=== PATIENT | female | born 1940 | race Two or more races ===

== ENCOUNTER 2018-07-19 10:13 | Outpatient (CLI) | payer OTHER ==
[~2018-07-19 10:13] MED LIST: AMOX1TAB12 PO; ATORVASTATIN CA10 MG; BENICAR HCT 41 UDTAB; DOLOGEN CAPLET1 EACH PO; DOLOGEN CAPLET1 TAB PO; DONEPEZIL HCL5 MG; GABAPENTIN400 MG; HYZAAR 100-251 EACH; MEDROL4 MG PO; MONTELUKAST SOD10 MG; PNEU16DI2; SYNTHROID175 MCG; TESSALON PERLE100 M1 PO; TESSALON PERLE100 MG PO; TUSSI PRES-B L120 M1 PO; ULTRACET PO; ZITHROMAX TRI-500 MG PO
== END 2018-07-19 10:26 | disposition home or self-care (01) ==
LOC: SONOGRAMA 10:13
DX: E04.1 Nontoxic single thyroid nodule (principal)

== ENCOUNTER → 2020-11-26 | Outpatient (CLI) | payer OTHER | END | disposition home or self-care (01) | LOC: SONOGRAMA 09:27 | PROVIDERS: ATTEND Pathology Anatomic Pathology & Clinical Pathology | DX: D34 Benign neoplasm of thyroid gland (principal); E04.2 Nontoxic multinodular goiter; E04.8 Other specified nontoxic goiter ==

== ENCOUNTER → 2025-01-29 | Emergency (ER) | payer OTHER ==
[~2025-01-29] VITALS: Ht 121.9 cm; Wt 59.0 kg
[~2025-01-29] MED LIST changes: +MICARDIS HCT 81 EACH PO
[2025-01-29 12:32] LABS: BASO % 0.4 % (0.1-1.2); EOS # 0.23 (0.04-0.54); EOS % 4.1 % (0.7-7.0); LYMPH # 1.63 (1.18-3.74); LYMPH % 29.3 % (19.3-53.1); MEAN PLATELET VOLUME 10.40 fl (9.4-12.4); MONO # 0.59 (0.24-0.82); MONO % 10.6 % (4.7-12.5); NEUT # 3.09 (1.56-6.13); NEUT % 55.4 % (34.0-71.1); RED CELL DISTRIBUTION WIDTH 12.7 % (11.6-14.4)
[2025-01-29 13:06] LABS: ALT/SGPT 19.0 U/L (12-78); AST/SGOT 21.0 U/L (15-37); BILIRUBIN TOTAL 1.34 mg/dL (0.3-1.2); BILIRUBIN,CONJUGATED 0.28 mg/dL (0.0-0.2); BUN CREA RATIO 18.0 (7.0-25.0); CREATININE SERUM 0.95 mg/dL (0.55-1.02); GFR 55.91; GLUCOSE FASTING 105.0 mg/dL (65-100); OSMOLALITY SERUM 287.0 MOSM/KG (275-295)
== END | disposition home or self-care (01) ==
LOC: ER 10:33
PROVIDERS: Emergency Medicine
DX: L29.89 Other pruritus (principal); R21 Rash and other nonspecific skin eruption; L29.9 Pruritus, unspecified; I10 Essential (primary) hypertension; E03.8 Other specified hypothyroidism; Z88.5 Allergy status to narcotic agent; Z88.6 Allergy status to analgesic agent; Z91.041 Radiographic dye allergy status